=== PATIENT | female | born 1970 | race Caucasian/White ===

== ENCOUNTER → 2016-12-22 | Outpatient (CLI) | payer MEDICAID | LOC: FIMAGING 12:52 | DX: Z12.31 Encounter for screening mammogram for malignant neoplasm of breast (principal); Z80.3 Family history of malignant neoplasm of breast | CPT/HCPCS: G0202 ==

== ENCOUNTER → 2017-01-07 | Outpatient (CLI) | payer MEDICAID | LOC: FIMAGING 08:54 | PROVIDERS: ATTEND Obstetrics & Gynecology Gynecology | DX: Z13.29 Encounter for screening for other suspected endocrine disorder (principal); R92.0 Mammographic microcalcification found on diagnostic imaging of breast | CPT/HCPCS: G0206 ==

== ENCOUNTER 2017-05-20 12:43 | Day surgery (SDC) | payer MEDICAID ==
[2017-05-20] MEDS ORDERED: LR 1,000 ML IV ONE (13:28)
--- NOTE | 2017-05-20 13:43 | PDANEPAE ---
ANE History of Present Illness 46 year old female for EGD/EUS. ANE Past Medical History - Cardiovascular History Hx Hypertension: No Hx Arrhythmias: No Hx Chest Pain: No Hx Coronary Artery / Peripheral Vascular Disease: No Hx CHF / Valvular Disease: No Hx Palpitations: No - Pulmonary History Hx COPD: No Hx Asthma/Reactive Airway Disease: No Hx Recent Upper Respiratory Infection: No Hx Oxygen in Use at Home: No Hx Sleep Apnea: No - Neurologic History Hx Cerebrovascular Accident: No Hx Seizures: No Hx Dementia: No Neurologic History Comment: RAYNAUDS - Endocrine History Hx Diabetes: No Hypothyroid: No Hyperthyroid: No Obesity: no - Renal History Hx Renal Disorders: No - Liver History Hx Hepatic Disorders: No - Neurological & Psychiatric Hx Hx Neurological and Psychiatric Disorders: No - Cancer History Hx Cancer: No - Congenital Disorder History Hx Congenital Disorders: No - GI History Hx Gastrointestinal Disorders: No Gastrointestinal History Comment: CHRONIC GASTRITIS. ABDOMINAL PAIN. HX UMBILICAL HERNIA- REPAIR 2012 EUS,EGD X2 - Other Health History Other Health History: NEG - Chronic Pain History Chronic Pain: No - Surgical History Prior Surgeries: EUS EGD X2. BREAST AUGMENTATION 2013. UMBILICAL HERNIA REPAIR 2012. COLONOSCOPY 2011. WISDOM TOOTH EXTRACTION ANE Review of Systems Review of systems is: negative Review of Systems: - Exercise capacity Exercise capacity: >=4 METS METS (RN): 5 METS ANE Patient History - Allergies Allergies/Adverse Reactions: No Known Allergies Allergy (Verified 01/27/16 11:21) - NPO status NPO Status: no food or drink >8 hours - Anes Hx Anes Hx: no prior problems - Smoking Hx Smoking Status: Never smoked - Alcohol Use Alcohol Use: Rarely - Family Anes Hx Family Anes Hx: neg - N/A Family Hx Anesthesia Complications: none ANE Labs/Vital Signs - Vital Signs Vital Signs: reviewed preoperatively; see RN documention for details Height: 175.26 cm Weight: 61.689 kg ANE Physical Exam - Airway Neck exam: FROM Mallampati Score: Class 1 Mouth exam: normal dental/mouth exam - Pulmonary Pulmonary: no respiratory distress - Cardiovascular Cardiovascular: regular rate and rhythym - ASA Status ASA Status: I ANE Anesthesia Plan Anesthesia Plan: GA with mask Total IV Anesthesia: Yes
[2017-05-20] MEDS ORDERED: PROPOFOL/EMULSION 500 MG/50 ML BOTTLE IV ONE (14:11)
[2017-05-20] MEDS ORDERED: INDOMETHACIN 50 MG SUPP PR PRN (14:11)
--- NOTE | 2017-05-20 14:11 | PDGENHP ---
History & Physical Chief Complaint: subepithelial lesion History of Present Illness: 46 year old female presents for evaluation of subepithelial lesion in gastric fundus Pertinent Past, Social, Family History: PMHx: GERD Relevant Physical Exam: HEENT: anicteric. CV: RRR +s1s2. Lungs: CTAB No w/r/ r. Abd: soft, nt, + BS Cardiorespiratory Assessment: ASA 1. Mall 1
[2017-05-20] MEDS ORDERED: NS 500 ML IV SCH (14:15)
[2017-05-20] MEDS ORDERED: ONDANSETRON 4 MG/2 ML VIAL IVP PRN (14:35)
[2017-05-20] MEDS ORDERED: NALOXONE HCL 0.4 MG/ML INJ IVP PRN (14:35)
[2017-05-20] MEDS ORDERED: LR 500 ML IV PRN (14:35)
[2017-05-20] MEDS ORDERED: fentaNYL 100 MCG/2 ML INJ IVP PRN (14:35)
[2017-05-20] MEDS ORDERED: PROPOFOL 200 MG/20 ML VIAL ONE (14:38)
--- NOTE | 2017-05-20 14:50 | POSTOPPROG ---
Post Op Note Date of Operation: 05/20/17 Surgeon: Won Norton Anesthesia: IV Sedation Pre-op Diagnosis: subepithelial lesion Post-op Diagnosis: subepithelial lesion, gastritis Indication: subepithelial lesion Procedure: EGD with bx, EUS Findings: + subepith. + gastritis Inf/Abcess present in the surg proc area at time of surgery?: No EBL: Minimal Specimen(s): gastritis subepithelial lesion
[2017-05-20 14:52] VITALS: TEMP 98.1
--- NOTE | 2017-05-20 14:59 | POSTANESTH ---
Post Anesthetic Evaluation Cardiovascular Status: Normal, Stable, Similar to Pre-Op Cond Respiratory Status: Normal, Stable, Similar to Pre-op Cond. Level of Consciousness/Mental Status: Can Participate in Eval, Alert and Oriented Pain Control: Adequate, Prn Tx Ordered Nausea/Vomiting Control: Adequate, Prn Tx Ordered Complications Possibly Related to Anesthesia: None Noted
[2017-05-20 15:51] VITALS: BP 105/85; PULSE 68; RESP 18; O2SAT 98
--- NOTE | 2017-05-20 15:59 | GPN ---
[f rep st] PROCEDURE NOTE DATE OF PROCEDURE: 05/20/2017 PROCEDURE: Esophagogastroscopy with biopsy, endoscopic ultrasound. INDICATIONS FOR PROCEDURE: The patient is a 46-year-old female, who presents for evaluation of subep ithelial lesion. CONSENT: Risks, benefits, and alternatives of the procedure were discussed in great detail with the patient. Risks of infection, bleeding, perforation, sedation were discussed. All questions answered . Informed consent obtained. MEDICATIONS: Propofol. Please see anesthesia record for details. ESTIMATED BLOOD LOSS: Insignificant. ESOPHAGOGASTROSCOPY EXAMINATION: The Olympus upper endoscope was inserted in the mouth and advanced to esophagus. The proximal, mid, and distal esophagus was normal in appearance. The stomach was entered and closely examined, including retroflexed views of angularis, cardia and fu ndus. Mucosa in the antrum body was erythematous in a patchy distribution. Biopsies were taken. A small hiatal hernia was noted. The duodenal bulb and the 2nd portion of the duodenum were normal in appearance. On retroflexion in the stomach, a 5 mm subepithelial lesion was seen, and biopsies were taken. ENDOSCOPIC ULTRASOUND EXAMINATION: The Hitpost linear echoendoscope was entered in the mouth and adv anced to the second portion of the duodenum. The pancreas was carefully examined from the uncinate p rocess to the tail, where the spleen was seen. There were hyperechoic foci noted throughout the panc reas. No mass or cystic lesion was noted. The common bile duct exam revealed no stone, stricture or stenosis. The left epithelial lesion was carefully examined. It measured approximately 4 mm. It was technical ly challenging to visualize this with the stiff echoendoscope. No significant periportal, peripancreatic or perigastric nodes appreciated. IMPRESSION: 1. Stable subepithelial lesion. 2. Gastritis, status post biopsy. 3. Small hiatal hernia. RECOMMENDATIONS: 1. Follow up on biopsy results. 2. Will discuss plan with the patient. /[id number]/MODL
== END 2017-05-20 16:05 | disposition home or self-care (01) ==
LOC: FSGY 12:43
PROVIDERS: ATTEND Internal Medicine Gastroenterology
PROC: 0DB68ZX Excision of Stomach, Via Natural or Artificial Opening Endoscopic, Diagnostic (ICD-10-PCS; principal; 2017-05-20 14:15)
DX: K31.89 Other diseases of stomach and duodenum (principal); K29.50 Unspecified chronic gastritis without bleeding; K44.9 Diaphragmatic hernia without obstruction or gangrene
CPT/HCPCS: J2704

== ENCOUNTER → 2017-07-11 | Outpatient (CLI) | payer MEDICAID | LOC: FIMAGING 13:47 | PROVIDERS: ATTEND Nurse Practitioner Women's Health | DX: R92.0 Mammographic microcalcification found on diagnostic imaging of breast (principal) | CPT/HCPCS: G0206 ==

== ENCOUNTER → 2017-12-27 | Outpatient (CLI) | payer MEDICAID | LOC: FIMAGING 11:23 | PROVIDERS: ATTEND Nurse Practitioner Women's Health | DX: Z12.31 Encounter for screening mammogram for malignant neoplasm of breast (principal) ==

== ENCOUNTER → 2018-05-06 | Outpatient (CLI) | payer MEDICAID | LOC: FIMAGING 15:13 | PROVIDERS: ATTEND Family Medicine | DX: M25.561 Pain in right knee (principal) ==

== ENCOUNTER → 2018-12-03 | Outpatient (CLI) | payer MEDICAID | LOC: FIMAGING 13:05 | PROVIDERS: ATTEND Physician Assistant | DX: N92.0 Excessive and frequent menstruation with regular cycle (principal); D25.0 Submucous leiomyoma of uterus; N83.291 Other ovarian cyst, right side ==

== ENCOUNTER → 2018-12-29 | Outpatient (CLI) | payer MEDICAID | LOC: FIMAGING 11:35 | PROVIDERS: ATTEND Physician Assistant | DX: Z12.31 Encounter for screening mammogram for malignant neoplasm of breast (principal); Z85.3 Personal history of malignant neoplasm of breast ==